=== PATIENT | male | born 1985 | race Caucasian/White ===

== ENCOUNTER 2024-02-09 10:47 | Emergency (ER) | payer BC, SELFPAY ==
[2024-02-09 10:57] VITALS: BP 129/65
--- NOTE | 2024-02-09 11:29 | ED.GENMED ---
History of Present Illness
<Sherrie Kunz PA-C - Last Filed: 02/09/24 13:28>
General
Chief Complaint: Chest Pain
Source: patient
Exam Limitations: none
Time Seen by Provider: 02/09/24 11:27
Nursing documentation reviewed up to this point in time: agreed with
Travel History
Have you had any contact with someone who has COVID-19?: No
Do you have any symptoms of coronavirus? Fever > 100 degrees, chills, cough, shortness of breath, sore throat, loss of taste or smell, muscle aches, or headache?: No
History of Present Illness
History of Present Illness:
38 y/o male with a PMH of long haul COVID presenting to the ER today with chest pain that started a few weeks ago. Patient states that he had pain similar to this on and off for a few years and he thinks it is related to long haul COVID. Patient
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 He presents today because he wants to make sure that his internal organs are okay and that he is
not having a new cardiac event. Patient denies nausea, vomiting, fevers or chills, upper respiratory symptoms, shortness of breath, active COVID-19 infection, new medications. Patient denies lower extremity pain, recent hospitalizations. Patient
denies any family history of early cardiac disease. Patient denies personal history of cardiac disease. Patient takes meloxicam daily but takes no other medications.
Past History
<Sherrie Kunz PA-C - Last Filed: 02/09/24 13:28>
Past History
ED Past Medical History: None
ED Past Surgical History: None
Social History
Tobacco: Non-smoker
Alcohol: None
Drug: None
Living: with family
Employment: Employed
Review of Systems
<Sherrie Kunz PA-C - Last Filed: 02/09/24 13:28>
Review of Systems
All Other Systems: ROS reviewed and negative except as documented in HPI and ROS
Phy Exam
<Sherrie Kunz PA-C - Last Filed: 02/09/24 13:28>
Physical Exam
Physical Exam:
General: Patient is well appearing and in no acute distress
Skin: Warm and dry, no rashes or lesions
Cardiac: Regular rate and rhythm, no murmurs. No tenderness to palpation of the external chest wall.
Peripheral Vascular: No lower extremity swelling
Pulm: Normal respiratory effort.
Abdomen: Abdomen is non-distended, non-tender to palpation
Scores
<Sherrie Kunz PA-C - Last Filed: 02/09/24 13:28>
Heart Score for Chest Pain Patients
STEMI patient?: No
History: Slightly or Non-Suspicious
ECG: Normal
Age: </= 45 years
Risk Factors: No Risk Factors
Troponin: </= Normal Limit
Heart Score for Chest Pain Patients: 0
Heart Score Risk: 2.5% MACE over next 6 weeks
Course
<Sherrie Kunz PA-C - Last Filed: 02/09/24 13:28>
Orders/Labs/Results
Orders:
Orders
02/09/24 11:00
Electrocardiogram (*1) Urgent
Reason for Study: Chest Pain
EKG- Treatment ONCE
02/09/24 11:31
Complete Blood Count/With Diff Urgent
Comprehensive Metabolic Panel Urgent
Monotest Urgent
Troponin I Urgent
02/09/24 11:45
CR Chest - 2 Views Urgent
Comment:
Reason For Exam: chest pain, shortness of breath
02/09/24 11:46
Add On- LAB Urgent
Tests Added?: monotest
Abnormal Lab Results
02/09/24
11:31
MCH 31.1 H pg
(27.0-31.0)
MCHC 38.2 H g/dL
(33.0-37.0)
Glucose 102 H mg/dl
(70-99)
Albumin 5.1 H g/dl
(3.5-5.0)
02/09/24 11:31
02/09/24 11:31
Vital Signs
Initial and Last Documented VS:
Initial Vital Signs
Temp Pulse Resp BP Pulse Ox
97.9 F 65 18 129/65 100
02/09/24 10:57 02/09/24 10:57 02/09/24 10:57 02/09/24 10:57 02/09/24 10:57
Last Documented Vital Signs
Temp Pulse Resp BP Pulse Ox
97.9 F 65 18 129/65 100
02/09/24 10:57 02/09/24 10:57 02/09/24 10:57 02/09/24 10:57 02/09/24 10:57
<Chucho Sanderson, DO - Last Filed: 02/09/24 13:09>
Orders/Labs/Results
Orders:
Orders
02/09/24 11:00
Electrocardiogram (*1) Urgent
Reason for Study: Chest Pain
EKG- Treatment ONCE
02/09/24 11:31
Complete Blood Count/With Diff Urgent
Comprehensive Metabolic Panel Urgent
Monotest Urgent
Troponin I Urgent
02/09/24 11:45
CR Chest - 2 Views Urgent
Comment:
Reason For Exam: chest pain, shortness of breath
02/09/24 11:46
Add On- LAB Urgent
Tests Added?: monotest
Abnormal Lab Results
02/09/24
11:31
MCH 31.1 H pg
(27.0-31.0)
MCHC 38.2 H g/dL
(33.0-37.0)
Glucose 102 H mg/dl
(70-99)
Albumin 5.1 H g/dl
(3.5-5.0)
02/09/24 11:31
02/09/24 11:31
Vital Signs
Initial and Last Documented VS:
Initial Vital Signs
Temp Pulse Resp BP Pulse Ox
97.9 F 65 18 129/65 100
02/09/24 10:57 02/09/24 10:57 02/09/24 10:57 02/09/24 10:57 02/09/24 10:57
Last Documented Vital Signs
Temp Pulse Resp BP Pulse Ox
97.9 F 65 18 129/65 100
02/09/24 10:57 02/09/24 10:57 02/09/24 10:57 02/09/24 10:57 02/09/24 10:57
<Sherrie Kunz PA-C - Last Filed: 02/09/24 13:28>
MDM/Problems Addressed
Differential Diagnosis Includes:
ddx include ACS, pneumonia, pneumothorax, GERD, costochondritis
MDM/Problems Addressed:
chest pain
Chronic conditions affecting care:
n/a
Acute Exacerbation and/or Progression of Chronic Illness:
n/a
<Sherrie Kunz PA-C - Last Filed: 02/09/24 13:28>
*Pulse Oximetry
Patient hypoxic: no
*EKG
Interpreted by ED Provider?: Yes
EKG Intrepretation Date: 02/09/24
Interpretation: abnormal
Comparison EKG: no changes
Heart Rate: 57
Rate: bradycardiac
Rhythm: sinus
Interval: normal interval, normal QT interval and normal OK interval
QRS Pattern: normal QRS
Ischemia: no ischemia
*Critical Care Note
Total Time (30-74mins, 75-104mins- exclusive of procedures): Not Applicable
Data Reviewed
Review of Other/Old Records Reveals: Records (reviewed ER physician documentation from 11/16/23, 10/25/21)
Source: patient and records
Prescriptions/Medications Considered But Not Given:
considered medication for pain however patient is comfortable at this time
<Sherrie Kunz PA-C - Last Filed: 02/09/24 13:28>
Patient Management
Escalation/DeEscalation of care consider admission/obs:
38 y/o male with a PMH of long haul COVID presenting to the ER today with chest pain that started a few weeks ago. Patient states that he had pain similar to this on and off for a few years and he thinks it is related to long haul COVID. Patient
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
Here in the emergency department, patient is well-appearing, his chest pain is not reproducible on exam, he has no murmurs, no adventitious lung sounds. His EKG shows no ischemic changes. His troponin is normal, his CBC and CMP are within normal
limits. I doubt ACS or PE. Patient has had the symptoms on the for many years. Patient has received workup for the symptoms in the past. Patient thinks his symptoms might be related to mono as a smalltalk developer to remission. His monotest here is
negative. Patient stable for discharge. Patient will follow-up with primary care provider
ED Attending Note
<Sherrie Kunz PA-C - Last Filed: 02/09/24 13:28>
-
Portions of this chart may have been created with voice recognition software.� Occasional wrong word or��sound alike� substitutions may have occurred due to the inherent limitations of voice recognition software.
<Chucho Sanderson, DO - Last Filed: 02/09/24 13:09>
ED Attending Note
Patient seen and examined by attending physician: Yes
I performed the substantive portion of visit, reviewed & personally made and approve the management plan that is documented in note by myself or FRANC.: Yes
ED Attending Note:
I have seen and evaluated the patient with a [id number] encounter. I have spoken to the advance practicer provider and involved in the medical history, the physical exam, medical decision making.
Evaluation and management service: agree unless noted differently below.
Results interpretation: agree unless noted differently below.
Focused HPI: 38-year-old male presenting with chest discomfort. Patient states he has a history of long COVID and wanted to make sure this is not heart
Physical exam: Sitting in bed comfortably. Heart regular rate and rhythm. Lungs clear. No significant leg tenderness noted
Medical Decision Making: EKG and troponin negative. Chest x-ray clear. Discussed noncardiac chest discomfort
Discharge Plan
Departure
Patient Disposition: Home (Routine Discharge)
Date of Disposition: 02/09/24
Time of Disposition: 13:18
Patient with high blood pressure during this ER visit?: Yes
Condition: Good
Discharge Problem:
Chest pain
Instructions: Long COVID, BLOOD PRESSURE, Chest Pain
Prescriptions:
No Action
multivitamin [One-A-Day Essential] 1 EACH tablet
1 ea PO DAILY
meloxicam 15 MG tablet
15 mg PO DAILY
citalopram 20 MG tablet
20 mg PO DAILY
Referrals:
Osvaldo Dalal MD [Family Provider] -
Activity Restrictions/Additional Instructions:
Today, you tested NEGATIVE for mono.
Please follow up with your primary care provider.
Please return to emergency department should you have new or worsening pain, shortness of breath, back pain, fainting spells, dizziness, intractable vomiting, or other concerning signs or symptoms
Interventions
Interventions:
*Risk Screen - Suicide Last Done: 02/09/24 10:57
*General Assessment Last Done: 02/09/24 10:57
*Neglect/Abuse Screening Last Done: 02/09/24 10:57
ED- Fall Risk Assessment Last Done: 02/09/24 11:41
*ED COVID-19 Vaccine History Last Done: 02/09/24 11:41
UP-Ihunsa-Jsrcvyddbf Assessment Last Done: 02/09/24 11:41
ED- Cardiac Assessment Last Done: 02/09/24 11:41
[2024-02-09 11:51] LABS: ALT (SGPT) 37 U/L (0-50); AST (SGOT) 37 U/L (17-59); Albumin 5.1 g/dl (3.5-5.0); Alkaline Phosphatase 63 U/L (38-126); Blood Urea Nitrogen 13 mg/dl (9-20); Calcium 10.2 mg/dl (8.4-10.2); Carbon Dioxide 29 mmol/L (22-30); Chloride 103 mmol/L (98-107); Glucose 102 mg/dl (70-99); Potassium 4.3 mmol/L (3.5-5.1); Sodium 140 mmol/L (135-145); Total Bilirubin 1.1 mg/dl (0.2-1.3); Total Protein 8.1 g/dl (6.3-8.2); eGFR > 60.00
[2024-02-09 11:57] LABS: % Basophils 0.8 % (0-2); % Eosinophils 0.6 % (0-6); % Immature Granulocytes 0.3 % (0-0.5); % Lymphocytes 21.9 % (20.5-51.1); % Monocytes 8.8 % (1.7-9.3); % Neutrophils 67.6 % (42.2-75.2); Absolute Basophils 0.1 10^3/uL (0-0.2); Absolute Lymphocytes 1.6 10^3/uL (1.2-3.4); Absolute Monocytes 0.6 10^3/uL (0.1-0.6); Absolute Neutrophils 4.9 10^3/uL (1.4-6.5); Hematocrit 42.4 % (39.0-52.0); Hemoglobin 16.2 g/dL (13.0-18.0); Mean Corp Hgb Conc. 38.2 g/dL (33.0-37.0); Mean Corpuscular Hgb 31.1 pg (27.0-31.0); Mean Corpuscular Volume 81.4 fL (80.0-94.0); Mean Platelet Volume 9.6 fL (7.4-10.4); Nucleated Red Blood Cells % 0 % (-); Platelet Count 284 10^3/uL (130-400); Red Blood Cell Count 5.21 10^6/uL (4.70-6.10); Red Cell Dist. Width 11.9 % (11.5-14.5); White Blood Cell Count 7.2 10^3/uL (4.8-10.8)
[2024-02-09 12:03] LABS: Troponin I < 0.012 ng/ml
[2024-02-09 13:17] LABS: Monotest Negative (Negative)
== END 2024-02-09 13:31 | disposition home or self-care (01) ==
LOC: EMR 10:47
PROVIDERS: Emergency Medicine; EMERGENCY PHYSICIAN Student in an Organized Health Care Education/Training Program; FAMILY PHYSICIAN Family Medicine
DX: R07.89 Other chest pain (principal)
CPT/HCPCS: 99283; 71046; 80053; 84484; 85025; 86308; 93005

== ENCOUNTER 2024-07-24 08:07 | Emergency (ER) | payer BC, SELFPAY ==
[2024-07-24 08:08] VITALS: BP 126/75
--- NOTE | 2024-07-24 09:08 | ED.GENMED ---
History of Present Illness
General
Chief Complaint: Throat Problem
Source: patient
Exam Limitations: none
Time Seen by Provider: 07/24/24 08:46
History of Present Illness
History of Present Illness:
38-year-old male presents with a months worth of progressively worsening difficulty swallowing. He started with solid foods. Progressed to this morning he had trouble getting coffee down. He states he feels a sticky sensation in his chest. He
has never regurgitated anything. He cannot eat any solid foods and has not been able to for several days. He tried famotidine without significant relief. No fevers. No headache. No abdominal pain.
Past History
Past History
ED Past Medical History: None
ED Past Surgical History: None
Social History
Tobacco: Non-smoker
Alcohol: None
Drug: None
Living: with family
Employment: Employed
Phy Exam
Physical Exam
Physical Exam:
General: Well-appearing male no acute respiratory distress
HEENT: Normocephalic atraumatic posterior pharynx without erythema uvula reactive. NO asymmetry
Heart: Regular rate and rhythm
Lungs: Clear no wheeze
Abdomen soft nontender
Course
Orders/Labs/Results
Orders:
Orders
07/24/24 09:01
CT Chest With Iv Contrast Urgent
Comment:
Reason For Exam: difficulty swallowing, pain in chest
07/24/24 09:48
Complete Blood Count/With Diff Urgent
Comprehensive Metabolic Panel Urgent
Lipase Urgent
07/24/24 09:51
EKG [Electrocardiogram (*1)] Urgent
Reason for Study: Chest Pain
EKG- Treatment ONCE
Abnormal Lab Results
07/24/24
09:48
Glucose 103 H mg/dl
(70-99)
Calcium 10.8 H mg/dl
(8.4-10.2)
Total Bilirubin 1.4 H mg/dl
(0.2-1.3)
07/24/24 09:48
Vital Signs
Initial and Last Documented VS:
Initial Vital Signs
Temp Pulse Resp BP Pulse Ox
97.6 F 63 18 126/75 99
07/24/24 08:08 07/24/24 08:08 07/24/24 08:08 07/24/24 08:08 07/24/24 08:08
Last Documented Vital Signs
Temp Pulse Resp BP Pulse Ox
97.6 F 67 14 118/98 99
07/24/24 08:08 07/24/24 10:21 07/24/24 10:21 07/24/24 10:21 07/24/24 10:21
MDM/Problems Addressed
Differential Diagnosis Includes:
Dysphagia. He notes progressive difficulty swallowing even liquids at this time. Patient concerned about a neurologic issue however I do not suspect this this does seem to be more of an esophageal issue. Question esophagitis versus reflux
Patient notes chest pressure and discomfort when he tries to swallow. Check labs and images chest.
*Critical Care Note
Total Time (30-74mins, 75-104mins- exclusive of procedures): Not Applicable
Update Note
Update Note:
CT negative for acute finding. There are several pulmonary nodules that are low risk. He is non-smoker. I relayed this to the patient. I do suspect some form of GERD or esophagitis as source of symptoms. Recommended PPIs and will follow-up with
GI
ED Attending Note
-
Portions of this chart may have been created with voice recognition software.� Occasional wrong word or��sound alike� substitutions may have occurred due to the inherent limitations of voice recognition software.
Discharge Plan
Departure
Patient Disposition: Home (Routine Discharge)
Date of Disposition: 07/24/24
Time of Disposition: 10:43
Patient with high blood pressure during this ER visit?: No
Discharge Problem:
Dysphagia
Prescriptions:
New
omeprazole 40 mg capsule,delayed release(DR/EC)
40 mg PO DAILY Qty: 30 0RF
No Action
multivitamin [One-A-Day Essential] 1 EACH tablet
1 ea PO DAILY
meloxicam 15 MG tablet
15 mg PO DAILY
citalopram 20 MG tablet
20 mg PO DAILY
Referrals:
Osvaldo Dalal MD [Family Provider] -
Activity Restrictions/Additional Instructions:
Use Prilosec as directed. Stick with a bland diet and drink plenty clear liquids. Return if worse otherwise follow-up with GI
Interventions
Interventions:
*Risk Screen - Suicide Last Done: 07/24/24 09:54
*General Assessment Last Done: 07/24/24 09:54
*Neglect/Abuse Screening Last Done: 07/24/24 09:54
ED- Fall Risk Assessment Last Done: 07/24/24 09:54
*ED COVID-19 Vaccine History Last Done: 07/24/24 09:54
ED-EENT Assessment Last Done: 07/24/24 09:54
ED- Pulmonary Assessment Last Done: 07/24/24 09:54
Discharge Date and Time
Print Language: YAKUT
[2024-07-24 09:54] VITALS: BMI 26.9
--- NOTE | 2024-07-24 10:15 | EDRN ---
the pt arrived back to his room from CT scan, the pt was placed back on the monitor and EKG performed, the pt asked if his CT results were back yet and this RN stated no and this RN notified the pt that this RN would have the provider look at his CT
for him as soon as possible, the pt stated that he doesn't like hospitals and that his anxiety is increasing, Rocky BOYLE notified, the pt is resting in stretcher in the lowest position, side rails up x1, HOB elevated, call peña within reach,
VS WNL, will continue to monitor the pt closely
[2024-07-24 10:21] VITALS: BP 118/98
[2024-07-24 10:37] LABS: ALT (SGPT) 39 U/L (0-50); AST (SGOT) 38 U/L (17-59); Alkaline Phosphatase 59 U/L (38-126); Blood Urea Nitrogen 18 mg/dl (9-20); Calcium 10.8 mg/dl (8.4-10.2); Carbon Dioxide 30 mmol/L (22-30); Chloride 102 mmol/L (98-107); Estimated Creatinine Clearance 89 ml/min; Glucose 103 mg/dl (70-99); Lipase 76 U/L (23-300); Potassium 4.2 mmol/L (3.5-5.1); Sodium 144 mmol/L (135-145); Total Bilirubin 1.4 mg/dl (0.2-1.3); Total Protein 7.5 g/dl (6.3-8.2); eGFR > 60.00
--- NOTE | 2024-07-24 10:38 | EDRN ---
the pt pressed the call peña and this RN entered the pts room, the pt stated to this RN, 'I am just having a panic attack i gotta get out of here, i gotta get out of here take the IV out please', this RN notified the provider Rocky BOYLE and
the provider came to the pts bedside, this RN removed RAC #20 PIV and placed a pressure dressing, the pt had taken himself off of the potline monitor, BP cuff, and Sp02 monitor, no s/s of distress, Rocky BOYLE is speaking with the pt
regarding his CT results currently
[2024-07-24 10:50] LABS: % Basophils 1.5 % (0-2); % Eosinophils 3.3 % (0-6); % Immature Granulocytes 0.2 % (0-0.5); % Lymphocytes 28.8 % (20.5-51.1); % Monocytes 11.7 % (1.7-9.3); % Neutrophils 54.5 % (42.2-75.2); Absolute Basophils 0.1 10^3/uL (0-0.2); Absolute Eosinophils 0.2 10^3/uL (0-0.7); Absolute Lymphocytes 1.8 10^3/uL (1.2-3.4); Absolute Monocytes 0.7 10^3/uL (0.1-0.6); Absolute Neutrophils 3.4 10^3/uL (1.4-6.5); Hematocrit 44.4 % (39.0-52.0); Hemoglobin 16.6 g/dL (13.0-18.0); Mean Corp Hgb Conc. 37.4 g/dL (33.0-37.0); Mean Corpuscular Hgb 31.4 pg (27.0-31.0); Mean Corpuscular Volume 84.1 fL (80.0-94.0); Mean Platelet Volume 9.7 fL (7.4-10.4); Nucleated Red Blood Cells % 0 % (-); Platelet Count 237 10^3/uL (130-400); Red Blood Cell Count 5.28 10^6/uL (4.70-6.10); Red Cell Dist. Width 12.3 % (11.5-14.5); White Blood Cell Count 6.1 10^3/uL (4.8-10.8)
== END 2024-07-24 10:48 | disposition home or self-care (01) ==
LOC: EMR 08:07
PROVIDERS: Physician Assistant; EMERGENCY PHYSICIAN Emergency Medicine; FAMILY PHYSICIAN Family Medicine
DX: R13.10 Dysphagia, unspecified (principal)
CPT/HCPCS: 99284; 71260; 80053; 83690; 85025; 93005; Q9967

== ENCOUNTER → 2024-11-07 12:53 | Outpatient (REF) | payer BC, SELFPAY | LOC: PAVMRI 12:53 | PROVIDERS: ATTENDING PHYSICIAN Specialist; FAMILY PHYSICIAN Family Medicine | DX: R20.0 Anesthesia of skin (principal) | CPT/HCPCS: 70553; A9575 ==